=== PATIENT | male | born 1960 | race Caucasian/White ===

== ENCOUNTER → 2017-11-07 | Outpatient (REF) ==
[~2017-11-07] MED LIST: DIAZ-311 PO; PER PO; PRED20TA6 PO; TRAM-420 PO
--- NOTE | 2017-11-07 14:04 | RADIOLOGY IMAGING REPORT ---
[place] [facility] [place] NAME: Louisa Mcpherson : 1960 MR: [id number] V: [id number] EXAM DATE: ORDERING PHYSICIAN: AMANDA CAIN TECHNOLOGIST: Location: [facility] - [place] Patient: Louisa Mcpherson : 1960 Visit/Account:[id number] Date of Sevice: 11/07/2017 Chest with lateral, two views. HISTORY: Chronic cough, intermittent chest pain, smoker. The heart size is normal. The aortic knob is calcified. Pulmonary vessels are normal. The lungs ar e voluminous. No pneumothorax. Interstitial markings are minimally are thickened bilaterally. No p leural fluid. Degenerative changes and a few chronic appearing wedge deformities are present in the spine. A healing fracture is present posteriorly in the right eighth rib. 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 IMPRESSION: COPD. Atherosclerosis. Healing right eighth rib fracture. Report Dictated By: Chad Santiago MD at 11/07/2017 1:54 PM Report E-Signed By: Chad Santiago MD at 11/07/2017 2:00 PM WSN:[id number]
== END ==
LOC: RAD 12:53
PROVIDERS: ATTEND Emergency Medicine
DX: J44.9 Chronic obstructive pulmonary disease, unspecified (principal); I25.10 Atherosclerotic heart disease of native coronary artery without angina pectoris
CPT/HCPCS: 71046

== ENCOUNTER → 2018-11-08 | Outpatient (REF) ==
--- NOTE | 2018-11-08 11:06 | RADIOLOGY IMAGING REPORT ---
FACILITY: [facility] PATIENT NAME: Louisa Mcpherson : 1960 MR: [id number] V: [id number] EXAM DATE: ORDERING PHYSICIAN: PAVAN SCHWARTZ TECHNOLOGIST: Location: [facility] Patient: Louisa Mcpherson : 1960 Visit/Account:[id number] Date of Sevice: 11/08/2018 ADDENDUM #1 ADDENDUM: Sphenoid sinus mucosal thickening and small volume sphenoid sinus secretions additionally noted. Report Dictated By: Victor M Arias MD at 11/08/2018 11:51 AM Report E-Signed By: Victor M Arias MD at 11/08/2018 11:51 AM ORIGINAL REPORT Head CT scan without contrast HISTORY: Slurred speech COMPARISONS: None TECHNIQUE: Non-contrast head CT was performed with sagittal and coronal reformations. One of the following dose optimization techniques was utilized in the performance of this exam: autom ated exposure control; adjustment of the mA and/or kV according to patient size; or use of iterative reconstruction technique. Specific details can be referenced in the facility's radiology CT exam ope rational policy. FINDINGS: There is no intracranial hemorrhage, hydrocephalus or midline shift. The basal cisterns, jimenez-white differentiation, and convexity sulci are maintained. Normal orbital soft tissues. 8mm patch of righ t parietal juxtacortical white matter hypoattenuation, axial image 49. Internal carotid artery ather osclerotic calcification noted. Clear mastoid air cells, sphenoid sinus mucosal thickening and small volume sphenoid sinus secretions . Normal osseous structures. IMPRESSION: 1. 8 mm patch of right parietal juxtacortical age-indeterminate nonspecific white matter hypoattenua tion. This may be chronic and related to prior ischemia or inflammation but is of unknown etiology. Brain MR without and with contrast could be utilized to further characterize this finding as needed. 2. Otherwise normal head CT. Report Dictated By: Victor M Arias MD at 11/08/2018 10:58 AM Report E-Signed By: Victor M Arias MD at 11/08/2018 11:03 AM WSN:[id number]
== END ==
LOC: CT 00:45
PROVIDERS: ATTEND Nurse Practitioner
DX: R47.81 Slurred speech (principal)
CPT/HCPCS: 70450